=== PATIENT | female | born 1990 | race Caucasian/White ===

== ENCOUNTER 2019-03-11 19:30 | Emergency (ER) | payer OTHER ==
[~2019-03-11] VITALS: Ht 160 cm; Wt 93.0 kg
[2019-03-11] MEDS ORDERED: CELEBREX50 MG PO (19:47)
[2019-03-11] MEDS ORDERED: PREDNISONE50 MG PO (21:41)
[2019-03-11] MEDS ORDERED: EPIPEN 2-P0.3 MG/0.3 IM (21:43)
[2019-03-11 22:00] VITALS: BP 128/76
--- NOTE | 2019-03-12 13:24 | EKG ---
[place] [address] ELECTROCARDIOGRAM REPORT Name: AGUILA MARTÍNEZ Room: [facility]#: [id number] Admission: 03/11/19 Attend Phys: Discharge: 03/11/19 Date of : [birth year] Report #: [id number] THIS REPORT FOR: //name// [facility] ED Test Date: 2019-03-11 Test Time: 19:36:33 Pat Name: AGUILA MARTÍNEZ Department: Room: Gender: F [employer]: : 1990 Requested By: Andreina Higuera Order Number: [id number] MD: Jeffery Evans Measurements Intervals [place] Rate: 85 P: 33 WI: 172 QRS: 72 QRSD: 113 T: 28 QT: 366 QTc: 436 Interpretive Statements Sinus rhythm Borderline intraventricular conduction delay No previous ECG available for comparison Electronically Signed On 03-12-2019 13:24:28 CDT by Jeffery Evans [email or web address] <ELECTRONICALLY SIGNED> By: Jeffery Evans MD, [facility] 03/12/19 1324 1936 35 Jeffery Evans MD, FACC /EPI
== END 2019-03-11 21:55 | disposition home or self-care (01) ==
LOC: M.ERS 19:30
DX: T78.49XA Other allergy, initial encounter (principal); J45.909 Unspecified asthma, uncomplicated

== ENCOUNTER 2021-08-22 22:04 | Emergency (ER) | payer OTHER ==
[~2021-08-22] VITALS: Ht 160 cm; Wt 99.8 kg
[~2021-08-22 22:04] MED LIST: CELEBREX50 MG PO; EPIPEN 2-P0.3 MG/0.3 IM; PREDNISONE50 MG PO
[2021-08-22] MEDS ORDERED: FOLIC D3 94.381 EACH PO (22:18)
[2021-08-22] MEDS ORDERED: LEXAPRO20 MG PO (22:18)
[2021-08-22] MEDS ORDERED: ENBRACE HR SOF1 EACH PO (22:18)
[2021-08-22 23:22] LABS: URINE BILIRUBIN NEGATIVE (Negative); URINE BLOOD TRACE (Negative); URINE CLARITY CLEAR; URINE COLOR YELLOW; URINE GLUCOSE-RANDOM NEGATIVE (Negative); URINE KETONES NEGATIVE (Negative); URINE LEUKOCYTES-REFLEX NEGATIVE (Negative); URINE NITRITE-REFLEX NEGATIVE (Negative); URINE PROTEIN NEGATIVE (Negative); URINE UROBILINOGEN 0.2 E.U./dl (0.2-1.0)
[2021-08-22 23:30] LABS: AMP/METHAMP Negative (Negative); BARBITURATES Negative (Negative); BENZODIAZEPINES Negative (Negative); COCAINE Negative (Negative); METHADONE Negative (Negative); OPIATES Negative (Negative); PCP Negative (Negative); THC Negative (Negative)
[2021-08-22 23:43] LABS: ABSOLUTE EOSINOPHILS 0.8 thou/uL (0.0-0.7); ABSOLUTE LYMPHOCYTES 2.9 thou/uL (0.8-5.3); ABSOLUTE MONOCYTES 0.9 thou/uL (0.0-1.2); ABSOLUTE NEUTROPHILS 7.4 thou/uL (1.6-8.1); BASOPHILS 0.2 %; EOSINOPHILS 6.9 %; HEMATOCRIT 38.5 % (37.0-47.0); HEMOGLOBIN 13.2 gm/dL (12.0-15.0); LYMPHOCYTES 24.2 %; MCH 29.1 pg (26.0-34.0); MCHC 34.4 g/dL (28.0-37.0); MCV 84.7 fL (80.0-100.0); MONOCYTES 7.1 %; MPV 7.3 fl. (7.2-11.1); NUCLEATED RBCS 0 /100WBC; PLATELET COUNT* 388 thou/uL (150-400); POLYS 61.6 %; RBC 4.54 mil/uL (4.20-5.00); RDW-CV 13.1 % (10.5-14.5)
[2021-08-22 23:52] LABS: CREATININE 0.8 mg/dL (0.6-1.3); POTASSIUM 3.6 mmol/L (3.5-5.1); TOTAL BILIRUBIN 0.2 mg/dL (<0.1-1.0); TOTAL PROTEIN 7.7 g/dL (6.4-8.2)
[2021-08-23 03:09] VITALS: BP 114/74
== END 2021-08-23 03:09 | disposition home or self-care (01) ==
LOC: M.ERS 22:04
PROVIDERS: Emergency Medicine
DX: K21.9 Gastro-esophageal reflux disease without esophagitis (principal); J45.909 Unspecified asthma, uncomplicated; Z90.49 Acquired absence of other specified parts of digestive tract; Z98.890 Other specified postprocedural states; Z79.899 Other long term (current) drug therapy